=== PATIENT | male | born 2000 | race Caucasian/White ===

== ENCOUNTER 2021-07-04 17:15 | Emergency (ER) | payer SELFPAY ==
[2021-07-04 20:32] LABS: Bilirubin Negative (Negative); Blood, Urine Negative (Negative); Clarity Clear (Clear); Glucose, Urine (Dipstick) Normal (Negative); Ketone, Urine Negative (Negative); Leukocyte Negative Leu/uL (Negative); Nitrite Negative (Negative); Protein, Urine (Dipstick) Negative (Neg-Trace); Specific Gravity, Urine 1.028 (1.002-1.036); Urobilinogen Normal mg/dL (Less than 2); pH, Urine 6.5 (5.0-9.0)
== END 2021-07-04 20:49 | disposition home or self-care (01) ==
LOC: ERS 17:15
DX: M54.32 Sciatica, left side (principal); Z79.899 Other long term (current) drug therapy
CPT/HCPCS: 81003; 99283

== ENCOUNTER 2021-08-03 08:25 | Outpatient (CLI) | payer OTHER | END 2021-08-03 08:26 | disposition home or self-care (01) | LOC: MRI 08:25 | PROVIDERS: ATTEND Family Medicine | DX: M47.26 Other spondylosis with radiculopathy, lumbar region (principal); M51.16 Intervertebral disc disorders with radiculopathy, lumbar region; M48.061 Spinal stenosis, lumbar region without neurogenic claudication | CPT/HCPCS: 72148 ==